=== PATIENT | female | born 1950 | race Caucasian/White ===

== ENCOUNTER → 2017-05-06 | Outpatient (CLI) | payer BC | END | disposition home or self-care (01) | LOC: RAD 09:42 | DX: Z13.820 Encounter for screening for osteoporosis (principal); M85.80 Other specified disorders of bone density and structure, unspecified site; M81.0 Age-related osteoporosis without current pathological fracture; N95.9 Unspecified menopausal and perimenopausal disorder; Z85.3 Personal history of malignant neoplasm of breast ==

== ENCOUNTER → 2018-03-21 | Outpatient (CLI) | payer BC ==
[2018-03-21 11:13] LABS: THYROXINE (T4) TOTAL 13.9 ug/dl (4.8-13.9)
[2018-03-21 11:18] LABS: THYROID STIM HORMONE (HS) 0.016 uIU/ml (0.358-4.75)
[2018-03-22 16:09] LABS: ANTICARDIOLIPIN AB, IGG, QN <9 GPL U/mL (0-14); ANTICARDIOLIPIN AB, IGM, QN 13 MPL U/mL (0-12); CARDIOLIPIN AB IGA 161836 <9 APL U/mL (0-11)
[2018-03-23 00:04] LABS: LUPUS DRVVT 46.4 sec (0.0-47.0); PTT-LA 33.1 sec (0.0-51.9)
[2018-03-23 02:07] LABS: PROTEIN S, FREE 93 % (57-157); PROTEIN S, TOTAL 130 % (60-150)
[2018-03-23 11:03] LABS: LUPUS REFLEX INTERPRETATION Comment: (.)
== END | disposition home or self-care (01) ==
LOC: LAB 09:40
PROVIDERS: Internal Medicine
DX: E03.9 Hypothyroidism, unspecified (principal); Z83.2 Family history of diseases of the blood and blood-forming organs and certain disorders involving the immune mechanism

== ENCOUNTER → 2018-04-24 | Outpatient (CLI) | payer BC ==
[2018-04-24 10:27] LABS: CHOLESTEROL 218 mg/dL (<200); CREATININE 1.01 mg/dL (0.55-1.02); HDL CHOLESTEROL 50 mg/dl (40-60); LDL CHOLESTEROL 136 mg/dL (9-159); SGPT/ALT 18 U/L (12-78); THYROID STIM HORMONE (HS) 0.046 uIU/ml (0.358-4.75); THYROXINE (T4) TOTAL 12.2 ug/dl (4.8-13.9); TRIGLYCERIDES 159 mg/dl (<150); VLDL CHOLESTEROL 32 mg/dL (6-40)
== END | disposition home or self-care (01) ==
LOC: LAB 08:49
PROVIDERS: Internal Medicine
DX: E03.9 Hypothyroidism, unspecified (principal); E11.9 Type 2 diabetes mellitus without complications; E78.00 Pure hypercholesterolemia, unspecified; E83.32 Hereditary vitamin D-dependent rickets (type 1) (type 2)

== ENCOUNTER → 2021-11-30 | Outpatient (CLI) | payer OTHER ==
[2021-11-30 12:08] LABS: CREATININE 1.24 mg/dL (0.55-1.02); THYROXINE (T4) TOTAL 12.9 ug/dl (4.8-13.9)
[2021-11-30 12:16] LABS: THYROID STIM HORMONE (HS) 0.401 uIU/ml (0.358-4.75)
== END | disposition home or self-care (01) ==
LOC: LAB 11:01
PROVIDERS: ATTEND Internal Medicine
DX: E03.9 Hypothyroidism, unspecified (principal); E78.00 Pure hypercholesterolemia, unspecified